=== PATIENT | male | born 1995 | race Two or more races ===

== ENCOUNTER → 2025-07-21 | Outpatient (BNVA) | payer OTHER, SELFPAY | END | disposition home or self-care (01) | PROVIDERS: PCP Nurse Practitioner Family; Referring Provider Nurse Practitioner Family; Visit Provider Nurse Practitioner Family | DX: Z00.00 Encounter for general adult medical examination without abnormal findings (principal); Z23 Encounter for immunization; I10 Essential (primary) hypertension | CPT/HCPCS: 90471; 90472; 90686; 90715; 93005; 99213 ==

== ENCOUNTER → 2025-08-04 | Outpatient (BNVA) | payer OTHER, SELFPAY | END | disposition home or self-care (01) | PROVIDERS: PCP Nurse Practitioner Family; Referring Provider Nurse Practitioner Family; Visit Provider Nurse Practitioner Family | DX: I10 Essential (primary) hypertension (principal); E66.9 Obesity, unspecified; Z13.1 Encounter for screening for diabetes mellitus; Z13.220 Encounter for screening for lipoid disorders; Z11.3 Encounter for screening for infections with a predominantly sexual mode of transmission; Z68.43 Body mass index [BMI] 50.0-59.9, adult | CPT/HCPCS: 99214 ==

== ENCOUNTER → 2025-08-15 | Outpatient (BNVA) | payer OTHER, SELFPAY | END | disposition home or self-care (01) | PROVIDERS: PCP Nurse Practitioner Family; Referring Provider Nurse Practitioner Family; Visit Provider Nurse Practitioner Family | DX: E11.65 Type 2 diabetes mellitus with hyperglycemia (principal); E78.5 Hyperlipidemia, unspecified; R94.5 Abnormal results of liver function studies; Z71.2 Person consulting for explanation of examination or test findings; N39.0 Urinary tract infection, site not specified; I10 Essential (primary) hypertension; Z79.4 Long term (current) use of insulin; Z23 Encounter for immunization | CPT/HCPCS: 82948; 90471; 90677; 99215; G0009 ==

== ENCOUNTER → 2025-08-25 | Outpatient (BNVA) | payer OTHER, SELFPAY | END | disposition home or self-care (01) | PROVIDERS: PCP Nurse Practitioner Family; Referring Provider Nurse Practitioner Family; Visit Provider Nurse Practitioner Family | DX: E11.65 Type 2 diabetes mellitus with hyperglycemia (principal); Z79.4 Long term (current) use of insulin | CPT/HCPCS: 82948; 99213 ==

== ENCOUNTER → 2025-09-29 | Outpatient (BNVA) | payer OTHER, SELFPAY | END | disposition home or self-care (01) | PROVIDERS: PCP Nurse Practitioner Family; Referring Provider Nurse Practitioner Family; Visit Provider Nurse Practitioner Family | DX: E11.65 Type 2 diabetes mellitus with hyperglycemia (principal); R11.2 Nausea with vomiting, unspecified | CPT/HCPCS: 99213 ==

== ENCOUNTER → 2025-10-06 | Outpatient (BNVA) | payer OTHER, SELFPAY | END | disposition home or self-care (01) | PROVIDERS: PCP Nurse Practitioner Family; Referring Provider Nurse Practitioner Family; Visit Provider Nurse Practitioner Family | DX: Z00.00 Encounter for general adult medical examination without abnormal findings (principal); E78.5 Hyperlipidemia, unspecified; R94.5 Abnormal results of liver function studies; I10 Essential (primary) hypertension; Z71.85 Encounter for immunization safety counseling; E11.65 Type 2 diabetes mellitus with hyperglycemia; E66.9 Obesity, unspecified; Z68.42 Body mass index [BMI] 45.0-49.9, adult | CPT/HCPCS: 99173; 99214 ==